=== PATIENT | female | born 1950 | race African-American/Black ===

== ENCOUNTER → 2017-07-11 | Outpatient (CLI) | payer MEDICARE, OTHER ==
[2016-03-21 10:00] VITALS: BP 106/59
[~2017-07-11] MED LIST: ASCO-78 PO; ASPI-482 PO; CHOL10003 PO; CYAN10005 PO; ENOX40DI SQ; LOSA25TA4 PO; MULT-208 PO; OXYC-323 PO; PROM25TA10 PO; VITA1CAP PO
--- NOTE | 2017-07-11 11:38 | KCIC ---
MRI study of the right hip without contrast Clinical indications: Right hip pain for 3 1/2 weeks after starting chemotherapy. TECHNIQUE: Noncontrast MRI sequences of the right hip were performed. STIR coronal sequence of both hips was performed for comparison. FINDINGS: There is prominent degenerative spurring of the right hip joint. There is loss of the articular cartilage especially the superior lateral aspect of the right hip joint space with significant subchondral bone marrow edema of the femoral head and acetabulum. Findings are consistent with severe primary degenerative osteoarthritis. Moderate right hip joint effusion is seen. No loose osteochondral body is seen. No double density sign or subchondral fracture is seen. No fracture line is evident. No other marrow infiltrative process is seen. Degenerative signal abnormality of the acetabular labrum is seen. No definite labral tear is seen. No paralabral ganglion cyst is seen. The iliopsoas tendon is intact and no iliopsoas bursitis is seen. The conjoined hamstring tendon is intact and no ischial tuberosity bursitis is seen. There is mild tendinosis of the gluteus medius tendon attachment to the greater trochanter. No greater trochanteric bursitis is seen. No muscle edema is evident. STIR coronal sequence of both hips demonstrates degenerative bone marrow edema of the left femoral head and left acetabulum consistent with osteoarthritis of the left hip joint. A small left hip joint effusion is seen. There is mild reactive bone marrow edema around both SI joints. IMPRESSION: Severe primary degenerative osteoarthritis of the right hip joint with a moderate-sized right hip joint effusion. Mild tendinosis of the gluteus medius tendon at the attachment to the greater trochanter. Primary degenerative osteoarthritis of the left hip joint seen on the STIR coronal sequence of both hips. Electronically signed by: Jc Martinez MD (07/11/2017 11:35 AM) [facility]
== END | disposition home or self-care (01) ==
LOC: KCIC MRI 07:44
PROVIDERS: ATTEND Nurse Practitioner Family
DX: M16.0 Bilateral primary osteoarthritis of hip (principal); M25.451 Effusion, right hip
CPT/HCPCS: 73721

== ENCOUNTER 2022-03-07 08:37 | Inpatient (IN) | payer MEDICARE, OTHER ==
[~2022-03-07] VITALS: Ht 157.5 cm; Wt 74.9 kg
[2022-03-07 08:20] VITALS: BP 139/69
[~2022-03-07 08:37] MED LIST changes: +CYAN-25 PO; -CYAN10005 PO; -LOSA25TA4 PO; +LOSA25TA54 PO; -OXYC-323 PO; +OXYC1TAB15 PO
[2022-03-07] MEDS ORDERED: ANTI-COAG MONITOR BY PHARMACY. MC PRN (10:30)
[2022-03-07 11:00] VITALS: BP 97/52
[2022-03-07] MEDS: LOSARTAN POTASSIUM 25 MG TABLET. PO SCH (11:00)
[2022-03-07] MEDS: FUROSEMIDE 20 MG TABLET PO SCH (11:00)
[2022-03-07] MEDS: MAGNESIUM OXIDE 400 MG TABLET PO SCH (11:00)
[2022-03-07] MEDS: FOLIC ACID 1 MG TABLET. PO SCH (11:00)
[2022-03-07] MEDS: TAMSULOSIN 0.4 MG CAP.ER.24H. PO SCH (11:00)
--- NOTE | 2022-03-07 11:28 | NUR ---
due to the medications that the pt took at home that were not the correct ones, we are holding all medications today. have non-administered all meds. will resume them tomorrow. Gus Paz RN
[2022-03-07 13:38] LABS: ALBUMIN 2.9 g/dL (3.4-5.0); ALBUMIN/GLOBULIN RATIO 0.9 (1.0-1.7); CALCIUM 8.5 mg/dL (8.5-10.1); CREATININE 1.2 mg/dL (0.6-1.0); GFR 53.3; MAGNESIUM 2.2 mg/dL (1.8-2.4); POTASSIUM 3.9 mmol/L (3.5-5.1); TOTAL BILIRUBIN 0.2 mg/dL (0.2-1.0); TOTAL PROTEIN 6.1 g/dL (6.4-8.2)
--- NOTE | 2022-03-07 14:51 | HP ---
DATE OF SERVICE: 03/07/2022 ADMIT DATE: 03/07/2022 HISTORY OF PRESENT ILLNESS: The patient is a 72-year-old -[place] female patient who was seen at the Emergency Room of [facility] as she accidentally took her 's medication and this happened about 11:30 p.m. By the time she arrived to the Emergency Room, her heart rate was down to 40. She apparently took her 's ____ 500 mg, primidone 50, diltiazem extended release 180, valsartan 160, carvedilol 25, Xarelto 20, and multivitamin. The patient has no symptoms. Her blood pressure was within normal range. The patient does have significant past medical history of DVT, sleep apnea, obesity, uterine cancer, has had history of hysterectomy, oophorectomy and salpingectomy also had multiple kidney stones that required cystoscopy and stent deployment. She also has chronic hip pain due to severe osteoarthritis and has lymphedema. The patient was transferred to [facility] after contacting the poison control center to be monitored closely as apparently there are no beds available in [facility] and she might require dopamine drip if her heart rate became extremely slow. When I saw her this morning, she said she does have some feeling dizzy when she stands up, but denied any other complaint. PAST MEDICAL HISTORY: Significant for hypertension, type 2 diabetes mellitus, uterine cancer, status post hysterectomy and bilateral salpingo-oophorectomy. She has also recurrent stones in the kidneys requiring cystoscopy and retrograde pyelography and retrieval, also has bilateral ureteral stent. Her uterine cancer has recurred and has been treated with chemotherapy and currently she is on Taxol. She has also blood loss anemia. PAST SURGICAL HISTORY: Significant for hysterectomy and bilateral salpingo-oophorectomy. She has also appendectomy, stent deployment to both kidneys. ALLERGIES: SHE IS ALLERGIC TO ANIMAL DANDER AND SULFAMETHOXAZOLE-TRIMETHOPRIM. MEDICATIONS: She is currently on the following medications: She is on cephalexin 500 mg 3 times a day, fluconazole 150 mg 1 tablet every 3 days, tamsulosin 0.4 mg at bedtime, rivaroxaban phelmiligram mg twice a day, losartan potassium 25 mg daily. She is on oxycodone/APAP 5/325 one tablet every 6 hours, Colace 100 mg daily, Ritalin glycol 17 grams twice a day, cyanocobalamin for vitamin B12 1000 mcg tablet once a day, cholecalciferol 1000 international unit once a day. FAMILY HISTORY: Unremarkable. SOCIAL HISTORY: She is , has 2 sons and 1 daughter. She has never smoked. She drinks alcohol very occasionally. Does not use any drugs. She works for [employer] for almost 38 years. She is currently retired. She ambulates with a cane according to her. PHYSICAL EXAMINATION: GENERAL: On arrival to the Emergency Room, the patient looked pale, but not jaundiced or cyanosed. No lymphadenopathy, no thyromegaly, no jugular venous distention. Mild bilateral lower limb edema. VITAL SIGNS: Her heart rate was 60, blood pressure was 136/64, temperature was 98.1, respiratory rate was 18 and oxygen saturation was 96% on room air. HEAD, EYES, EARS, NOSE, AND THROAT: Normocephalic, atraumatic. NECK: Supple. HEART: Normal first and second heart sounds. No gallop or murmur. CHEST: Shows central trachea. Does have a Port-A-Cath in the left infraclavicular fossa to the left internal jugular vein. Chest has equal bilateral chest expansion, air entry, vesicular breath sounds. I could not appreciate any crepitation or rhonchi. ABDOMEN: Slightly distended, soft, nontender. No guarding or rigidity. No organomegaly with hernial orifice intact. Bowel sounds normal. NEUROLOGIC: She is grossly intact. LABORATORY DATA: Showed a white cell count 4.6, hemoglobin 11.3, hematocrit 34.7, MCV 83 and platelet count 213,000 with normal manual differential. Her chemistry showed a serum sodium of 141, potassium 4.3, chloride 105, bicarbonate 31, anion gap of 5, BUN 23, creatinine 1.4. Estimated GFR was 44 mL per minute. Her glucose 114, calcium was 9, magnesium was 2.3. Total bilirubin, AST, ALT, alkaline phosphatase were normal. Her beta natriuretic peptide was 132. Total protein 6.5, albumin was 3.2 and serum lipase 123. ASSESSMENT AND PLAN: In summary, the patient was admitted to [facility] to be closely monitored. As her heart rate dropping into the 30s, she was given 0.5 mg atropine and we will order plan to start her on dopamine if her heart rate continues to be that low. Her bradycardia is because she accidentally overdosed and took her 's medication. She does have mild anemia and mildly impaired kidney function. LAKEISHA/PEDRITO/RUFUS DR: Rafa TID: [id number]
[2022-03-07 15:00] VITALS: BP 97/50
[2022-03-07] MEDS ORDERED: RIVAROXABAN 10 MG TABLET. PO SCH (17:00)
[2022-03-07 19:40] VITALS: BP 102/56
[2022-03-07 23:00] VITALS: BP 94/48
[2022-03-08 03:10] VITALS: BP 101/49
[2022-03-08 07:00] VITALS: BP 124/61
[2022-03-08] MEDS: FOLIC ACID 1 MG TABLET. PO SCH (09:20)
[2022-03-08] MEDS: MAGNESIUM OXIDE 400 MG TABLET PO SCH (09:20)
[2022-03-08] MEDS: FUROSEMIDE 20 MG TABLET PO SCH (09:20)
[2022-03-08] MEDS: TAMSULOSIN 0.4 MG CAP.ER.24H. PO SCH (09:20)
[2022-03-08] MEDS: LOSARTAN POTASSIUM 25 MG TABLET. PO SCH (09:21)
[2022-03-08 10:54] VITALS: BP 136/61
[2022-03-08 13:06] LABS: HEMATOCRIT 34.8 % (36.0-47.0); HEMOGLOBIN 11.1 g/dL (12.0-15.5); RED BLOOD COUNT 4.18 x10^6/uL (3.50-5.40); RED CELL DISTRIBUTION WIDTH 22.4 % (11.5-14.5); WHITE BLOOD COUNT 3.4 x10^3/uL (4.0-11.0)
[2022-03-08 13:29] LABS: ALBUMIN 3.1 g/dL (3.4-5.0); ALBUMIN/GLOBULIN RATIO 0.8 (1.0-1.7); CREATININE 1.2 mg/dL (0.6-1.0); GFR 53.3; POTASSIUM 4.4 mmol/L (3.5-5.1); TOTAL BILIRUBIN 0.2 mg/dL (0.2-1.0)
--- NOTE | 2022-03-08 14:09 | NUR ---
SS following for discharge planning. SS reviewed pt chart and discussed with pt RN. Pt is from home with spouse and is currently on room air. Discharge order on the chart for home with self care.
[2022-03-08] MEDS ORDERED: HEPARIN PF 500 UNIT/5 ML DISP.SYRIN. IVP ONE (14:30)
--- NOTE | 2022-03-08 16:30 | NUR ---
Discharge Note: AISHWARYA CANTU [facility] Discharge instructions and discharge home medications reviewed with Patient and a copy given. All questions have been answered and understanding verbalized. The following instructions and handouts were given: bradycardia. Patient discharged to home with self care via wheelchair.
--- NOTE | 2022-03-08 22:07 | PN ---
DATE: 03/08/2022 SUBJECTIVE: The patient is sitting in her wheelchair, in no apparent distress. On questioning her, she stated that she still feels dizzy when she stands up and did have the shower with the product development assistant of [employer] but denied any fall. PHYSICAL EXAMINATION: General: When I examined her, she was pale, not jaundiced or cyanosed. No lymphadenopathy, no thyromegaly, no jugular venous distention, no lower limb edema. VITAL SIGNS: Her heart rate was 58, blood pressure was 136/61, temperature was 98.1, respiratory rate was 19, and oxygen saturation was 100% on room air. HEAD, EYES, EARS, NOSE, AND THROAT: Shows she is normocephalic, atraumatic. NECK: Supple. HEART: Showed normal first and second heart sounds. No gallop, rub or murmur. CHEST: Clear to auscultation. No crepitation or rhonchi. ABDOMEN: Distended, soft, nontender. NEUROLOGIC: She is awake, alert, responding appropriately. All cranial nerves intact. She moves extremities without difficulty. She ambulates with a walker. LABORATORY DATA: Has no lab work done this morning. ASSESSMENT: The patient was admitted with symptomatic bradycardia as she took the medication of her . Yesterday, her heart rate was dropping down to 30 and mostly around 44, today is in the 50s, but the patient continued to be somewhat symptomatic. The patient has multiple other medical problems including: A. Hypertension. B. Type 2 diabetes mellitus. C. Uterine cancer, status post total abdominal hysterectomy, bilateral salpingo-oophorectomy. D. Recurrent stones in the kidneys, requiring cystoscopy and retrograde pyelography and retrieval with placement of bilateral ureteral stents. Has also history of blood loss anemia. PLAN: My plan to continue with all her current medications. I will arrange for her to have CBC and CMP today and order PT, OT to check her orthostatics and hopefully discharge her back home tomorrow. VY/CARLY DR: Rafa TID: [id number]
--- NOTE | 2022-03-13 17:03 | DS ---
DATE OF DISCHARGE: 03/08/2022 HOSPITAL COURSE: The patient is a 72-year-old -[place] female patient who was seen initially at the Emergency Room of [facility] as she accidentally took her 's medications and this happened about 11:30 p.m. By the time she arrived to the Emergency Room, her heart rate was down to 40. Her 's medications that she took were primidone 50 mg, diltiazem extended release 180 mg, valsartan 160 mg, carvedilol 25 mg, Xarelto 20 mg, and multivitamin. The patient was asymptomatic at that time. Her blood pressure was within normal range. The patient does have significant past medical history of DVT, sleep apnea, obesity, uterine cancer. She also had a history of hysterectomy, oophorectomy and salpingo-oophorectomy and had multiple kidney stones that required cystoscopy and stent deployment. She also has chronic hip pain due to severe osteoarthritis and has lymphedema mostly in the right lower extremity. The patient was transferred to [facility] after contacting the Poison Control Center to be monitored closely as apparently there are no beds available in [facility] and she might require dopamine drip if her heart rate became extremely low. When I saw her on the morning of admission, she stated that she does have some feeling of dizziness when she stands up, but denied any other complaint. She was monitored over the next 3 days and her heart rate remained around 50-58 for more than 24 hours. On questioning her, she denied any complaint. In particular, she denied any dizziness, lightheadedness or syncope. She was able actually to ambulate with a walker on her own, although I advised her against that and consulted the Physical and Occupational Therapy, who evaluated her and she apparently has been stable with no evidence of postural hypotension. Her heart rate remained in the mid 50s and therefore, a decision was made to discharge her home to go back on her own medications. DISCHARGE PHYSICAL EXAMINATION: GENERAL: When I saw her on the day of discharge, she looked well and was clearly in no apparent respiratory distress. She was pale, not jaundiced or cyanosed, no lymphadenopathy, no thyromegaly, no jugular venous distention. No lower limb edema. VITAL SIGNS: Her heart rate was 58, blood pressure was 136/61, temperature was 98.1, respiratory rate was 19, and oxygen saturation was 100% on room air. HEAD, EYES, EARS, NOSE AND THROAT: Normocephalic, atraumatic. NECK: Supple. Heart: Showed normal first and second heart sounds. No gallop, rub or murmur. CHEST: Clear to auscultation, no crepitation or rhonchi. ABDOMEN: Distended, soft, nontender. NEUROLOGIC: She is awake, alert, responding appropriately. All cranial nerves are intact. She moves extremities without difficulty. She ambulates with a walker. Her intake over the last 24 hours was 1000, no output was recorded. LABORATORY DATA: Her most recent lab work showed a white cell count of 3.4, hemoglobin 11, hematocrit 35, MCV 83 and platelet count 205. Her chemistry on the day of discharge showed a serum sodium 137, potassium 4.4, chloride 103, bicarbonate 28, anion gap of 6, BUN 21, creatinine 1.2, estimated GFR was 53 mL per minute. Her glucose 149, calcium was 9. Total bilirubin, AST, ALT, alkaline phosphatase were normal. Total protein 7, albumin was 3.1. DISCHARGE MEDICATIONS: She was discharged home to continue on vitamin C 500 mg once a day, aspirin 81 mg once a day, cholecalciferol (vitamin D3) 1000 International Units once a day, cyanocobalamin 1000 mcg once a day, losartan potassium 25 mg once a day, multivitamin 1 tablet once a day, oxycodone/APAP 5/325 mg 1 tablet every 4-6 hours, promethazine 25 mg every 6 hours and vitamin B complex 1 tablet once a day. FINAL DISCHARGE DIAGNOSES: 1. Symptomatic bradycardia as she took the medications of her including carvedilol and diltiazem. Her heart rate the lowest was 30 beats per minute. However, for more than 24 hours, her heart rate was in the mid 50s and the patient was asymptomatic, was able to walk actually in the corridor to the hospital on her own with a walker. Other medical problems include: A. Hypertension. B. Type 2 diabetes mellitus. C. Uterine cancer, status post total abdominal hysterectomy and bilateral salpingo-oophorectomy. D. Recurrent stones in the kidneys requiring cystoscopy and retrograde pyelography and retrieval with placement of bilateral ureteral stents. E. She has also blood loss anemia. However, on the day of discharge, her hemoglobin was 11 and hematocrit was 34, white cell count was slightly low at 3.4; however, platelets were normal at 205. GERARDO/RUFUS DR: Rafa TID: [id number]
== END 2022-03-08 16:01 | disposition home or self-care (01) | DRG 918 ==
LOC: 6 SOUTH 08:37
PROVIDERS: ADMIT Internal Medicine; ATTEND Internal Medicine
DX: T46.1X1A Poisoning by calcium-channel blockers, accidental (unintentional), initial encounter (principal); C55 Malignant neoplasm of uterus, part unspecified; D64.9 Anemia, unspecified; E11.9 Type 2 diabetes mellitus without complications; G89.29 Other chronic pain; I10 Essential (primary) hypertension; I89.0 Lymphedema, not elsewhere classified; M16.10 Unilateral primary osteoarthritis, unspecified hip; N28.9 Disorder of kidney and ureter, unspecified; Z85.42 Personal history of malignant neoplasm of other parts of uterus; Z86.718 Personal history of other venous thrombosis and embolism; Z87.442 Personal history of urinary calculi; Z90.710 Acquired absence of both cervix and uterus; Z92.21 Personal history of antineoplastic chemotherapy; E66.9 Obesity, unspecified; Z68.30 Body mass index [BMI] 30.0-30.9, adult; T42.6X1A Poisoning by other antiepileptic and sedative-hypnotic drugs, accidental (unintentional), initial encounter; T46.5X1A Poisoning by other antihypertensive drugs, accidental (unintentional), initial encounter; T44.7X1A Poisoning by beta-adrenoreceptor antagonists, accidental (unintentional), initial encounter; T45.511A Poisoning by anticoagulants, accidental (unintentional), initial encounter; Y92.89 Other specified places as the place of occurrence of the external cause; Z88.8 Allergy status to other drugs, medicaments and biological substances; Z90.49 Acquired absence of other specified parts of digestive tract; Z90.722 Acquired absence of ovaries, bilateral
CPT/HCPCS: 36415; 80053; 83735; 85027; J1642; 97116-GP; G0378